=== PATIENT | male | born 1960 | race Caucasian/White ===

== ENCOUNTER → 2016-06-04 | Outpatient (CLI) | payer OTHER | LOC: LAB.O 08:43 | PROVIDERS: ATTEND Internal Medicine Hematology & Oncology | DX: M85.88 Other specified disorders of bone density and structure, other site (principal) ==

== ENCOUNTER → 2016-07-17 | Outpatient (CLI) | payer OTHER | END | disposition home or self-care (01) | LOC: LAB.O 08:40 | PROVIDERS: ATTEND Internal Medicine | DX: M45.9 Ankylosing spondylitis of unspecified sites in spine (principal) ==

== ENCOUNTER → 2016-07-19 | Day surgery (SDC) | payer OTHER ==
--- NOTE | 2016-07-17 13:47 | RAD ---
EXAM DESCRIPTION: Chest,2 Views CLINICAL HISTORY: Pre-op COMPARISON: None TECHNIQUE: PA/lateral FINDINGS: Increased AP diameter of the chest. The lungs are clear. There is no effusion. IMPRESSION: 1. There is suggestion of mild emphysema and increased diameter of the chest on the lateral radiograph. No additional findings noted. Electronically signed by: Franklin Acosta MD 07/17/2016 12:09 PM ACCOUNTING MACHINE OPERATOR
[~2016-07-19] MED LIST: CARBOXYMETHYLCELLULOSE 0.5% 0.4 ML UD ONE; DEXAMETHASONE INJ 10 MG/ML VIAL ONE; GLYCOPYRROLATE 0.2 MG/ML VIAL ONE; HYDROcodone 5MG/APAP 325MG 1 EA TAB ONE; LACTATED RINGERS 1,000 ML ONE; LIDOCAINE 1% 10 ML VIAL INJ ONE; METHYLENE BLUE INJ ONE; MIDAZOLAM INJ 5 MG/5 ML VIAL ONE; ONDANSETRON INJ 4 MG/2 ML VIAL ONE; PROPOFOL 200 MG/20 ML VIAL IV ONE; ROCURONIUM BROMIDE 10 MG/ML VIAL ONE; SODIUM CHL 0.9% 100ML MINI-BAG 100 ML IVPB ONE; ceFAZolin SODIUM 1 GM VIAL ONE; diphenhydrAMINE HCL 50 MG/ML VIAL ONE; fentaNYL CITRATE INJ 50 MCG/ML AMP ONE; raNITIdine HCL INJ 25 MG/ML VIAL ONE
[2016-07-19 11:24] VITALS: BP 124/81; TEMP 97; O2SAT 98
--- NOTE | 2016-07-19 11:32 | OP ---
DATE OF PROCEDURE: 07/19/16 PREOPERATIVE DIAGNOSIS: 1. Pilonidal cyst. POSTOPERATIVE DIAGNOSIS: 1. Pilonidal cyst. PROCEDURE: 1. Excision of pilonidal cyst. SURGEON: Daniel Gil MD. WEB APPLICATION DEVELOPER: None. ANESTHESIA: General endotracheal anesthesia in the prone position. INDICATION: The patient is a 55-year-old male who has had four years of some discomfort and draining from the area posterior to his anus, between his gluteus michale. After the risks, benefits and alteratives to the procedure were discussed and accepted, the patient was brought to the Surgical Suite today for excision of same. FINDINGS: The pilonidal cyst was extremely small with no apparent cannulation. PROCEDURE: The patient was brought to the Surgical Suite and placed in the supine position on the gurney. After an extremely difficult time with intubation, this was successfully done. It was then fixed in place, the face shield was placed, and the patient was then turned into the prone position and positioned without significant difficultly. He was then prepped and draped in the usual sterile manner. A surgical time-out was taken and then the cyst was instilled with methylene blue and hydrogen peroxide. An elliptical incision was fashioned around the lesion and the skin was incised with a sharp knife and then dissection was carried down through the subcutaneous tissue and the lesion was excised using electrocautery. There was no extravasation of methylene blue identified. Hemostasis was obtained with electrocautery. The wound was irrigated copiously with saline. It was then closed in layers with the subcutaneous layers closed with interrupted 3-0 Vicryl suture and the skin edges approximated with 3-0 Ethilon vertical mattress sutures. Sterile pressure dressing was applied. The patient was awakened and taken to the Recovery Room in stable condition. Estimated blood loss was less than 50 mL. All sponge, needle and instrument counts were correct. #[id number] [facility]
--- NOTE | 2016-07-22 00:37 | RAD ---
EXAM DESCRIPTION: Chest,2 Views CLINICAL HISTORY: Pre-op COMPARISON: None TECHNIQUE: PA/lateral FINDINGS: Increased AP diameter of the chest. The lungs are clear. There is no effusion. IMPRESSION: 1. There is suggestion of mild emphysema and increased diameter of the chest on the lateral radiograph. No additional findings noted. Electronically signed by: Franklin Acosta MD 07/17/2016 12:09 PM MILK PROCESSING WORKER
== END ==
LOC: AMB 05:54
PROVIDERS: ATTEND Surgery
DX: L05.91 Pilonidal cyst without abscess (principal); E11.9 Type 2 diabetes mellitus without complications; F20.9 Schizophrenia, unspecified; F17.210 Nicotine dependence, cigarettes, uncomplicated; Z88.8 Allergy status to other drugs, medicaments and biological substances; Z79.899 Other long term (current) drug therapy
CPT/HCPCS: 00300; 11770; 71020; 80307; 81001; 82948; 87070; 93005; J0690; J1100; J1200; J2250; J2405; J2780; J3010; J3490; J7050; J7120

== ENCOUNTER → 2016-10-04 | Outpatient (CLI) | payer OTHER ==
--- NOTE | 2016-10-06 11:33 | MRI ---
EXAM DESCRIPTION: Lumbar Spine w/wo Contrast CLINICAL HISTORY: INTRADURAL EXTRAMEDULLARY SPINAL TUMOR COMPARISON: None Available. TECHNIQUE: MRI of the lumbar spine is performed according to our usual protocol with axial and sagittal multi sequence imaging. Pre and postcontrast imaging was obtained with additional precontrast coronal imaging sequence obtained. FINDINGS: On the postcontrast coronal imaging there is very minimal scoliosis of the spine convex to the right. Vertebral and disc height is maintained without compression deformity or marrow destructive process with mild disc desiccation at L2-3 and at L4-5. The conus is positioned at the mid L1 level and in the posterior thecal sac at the mid L2 level is an oval intradural extra medullary oval mass measuring 1.8 x 1.0 cm and lying posterior to the nerve roots and the filum terminale. The mass is isointense to the cord on T1 and postcontrast enhanced imaging and mildly hyperintense to the cord on precontrast T2 imaging. Fatty signal characteristics are not apparent and additional intradural or intramedullary masses are not apparent. Mild disc desiccation and annular bulge at L2-3 and L3 4-5 is evident without lateralizing herniation identified with mild multilevel facet arthropathy with thecal sac in the lower range of normal at L4-5. Disc contours at the other disc levels are felt to be within the limits of normal with no lateralizing herniation. The extra medullary intradural mass homogeneously enhances and is oval and circumscribed and lies superiorly adjacent to the nerve roots and filum terminale. Differential diagnosis will include schwannoma, neurofibroma, possibly meningioma, with the additional possibility of an ependymoma because of proximity to the filum terminale and if the patient has a history of metastatic disease the possibility of an intradural metastasis. Additional lesions are not apparent. IMPRESSION: 1. Posteriorly positioned extra medullary intradural circumscribed oval 1.8 x 1.0 cm mass in the posterior thecal sac at the L1 level just below the conus with anterior displacement of the nerve roots and filum terminale. Mild but definite enhancement of the mass is apparent suggesting this does not represent a cystic abnormality. 2. Differential diagnosis would include schwannoma, neurofibroma, meningioma, as well as the possibility of an ependymoma or with a clinical history of previous malignancy the possibility of intradural metastatic disease. Additional lesions are not apparent. 3. Anterior displacement of the nerve roots is present without severe stenosis. 4. Mild annular bulge and disc desiccation at L2-3 and L4-5. Electronically signed by: Uriel Centeno MD 10/06/2016 11:32 AM CDT
== END | disposition home or self-care (01) ==
LOC: MRI 07:02
PROVIDERS: ATTEND Neurological Surgery
DX: M48.8X7 Other specified spondylopathies, lumbosacral region (principal)

== ENCOUNTER → 2016-10-11 | Outpatient (CLI) | payer OTHER | END | disposition home or self-care (01) | LOC: YCFC.O 07:54 | PROVIDERS: ATTEND Nurse Practitioner Family | DX: E11.65 Type 2 diabetes mellitus with hyperglycemia (principal); E78.2 Mixed hyperlipidemia ==

== ENCOUNTER 2016-10-24 21:27 | Emergency (ER) | payer OTHER ==
[2016-10-24] MEDS ORDERED: SODIUM CHLORIDE 0.9% 1000ML 1,000 ML IVS ONE (22:48)
--- NOTE | 2016-10-24 23:22 | CT ---
EXAM DESCRIPTION: Abdoment/Pelvis w/o Contrast CLINICAL HISTORY: 55 years Male left flank pain COMPARISON: None. TECHNIQUE: Contiguous axial images obtained through the abdomen and pelvis without IV contrast. Reformatted images obtained. This exam was performed according to our department optimization program which includes automated exposure control, adjustment of the mA and/or kv according to patient size and/or use of iterative reconstruction technique. FINDINGS: The lung bases are clear. Elongated Myron's lobe of the liver. Enlarged spleen. The pancreas is unremarkable. No adrenal masses. The kidneys appear unremarkable. No hydronephrosis or definite ureteral calculi. The gallbladder is contracted. No aneurysmal dilatation of the aorta. No bowel obstruction. Unremarkable appendix. No free pelvic fluid. Percutaneous pinning of the left hip. IMPRESSION: No evidence of hydronephrosis or obstructive uropathy Enlarged spleen Electronically signed by: Carly Ocampo 10/24/2016 11:21 PM CDT
[2016-10-24] MEDS ORDERED: HYDROmorphone HCL INJ 2 MG/ML VIAL IV ONE (23:23)
[2016-10-24 23:40] VITALS: BP 147/100
--- NOTE | 2016-10-24 23:46 | ED.PDOC ---
History of Present Illness - General Chief Complaint: Back Pain or Injury Stated Complaint: left flank pain Time Seen by Provider: 10/24/16 23:22 Source: patient Exam Limitations: no limitations - History of Present Illness Initial Comments: L FLANK PAIN X 11 MONTHS. GROSS HEMATURIA 1 WEEK AGO. URGENCY, VOIDS 7-10 X PER NIGHT. NO DYSURIA. DRINKS A LOT OF WATER. HAS NOT SEEN UROLOGY YET. 1 MO AGO ABX FOR SUSPECTED PROSTATITIS. CHRONIC ARTHRITIS FOR WHICH HE SEES RHEUMATOLOGY AND IS ON MTX AND HUMIRA. Quality/Severity: severe Allergies/Adverse Reactions: Allergies Amitriptyline Allergy (Verified 10/24/16 22:22) Naproxen [From Naprosyn] Adverse Reaction (Verified 07/17/16 11:27) Patient states, "I have muscle problems when I take Naprosyn" Home Medications: Ambulatory Orders Adalimumab [Humira Pen] 40 mg SC WKLY 07/17/16 Aspirin [Aspirin Adult Low Dose] 81 mg PO DAILY 07/17/16 Folic Acid 1 mg PO BEDTIME 07/17/16 Gabapentin [Neurontin] 600 mg PO TID 07/17/16 Lisinopril 20 mg PO DAILY 07/17/16 Metformin HCl 500 mg PO DAILY 07/17/16 Methotrexate Sodium [Methotrexate] 2.5 mg PO WKLY 07/17/16 Simvastatin 40 mg PO BEDTIME 07/17/16 Acetaminophen W/ Codeine [Tylenol W/ CODEINE #3] 1 - 2 ea PO Q6H PRN #15 Tamsulosin [Flomax] 0.4 mg PO QD #20 cap 10/25/16 Review of Systems - Review of Systems Constitutional: Denies: chills, fever EENTM: States: no symptoms reported Respiratory: States: no symptoms reported Cardiology: States: no symptoms reported Gastrointestinal/Abdominal: Denies: abdominal pain, constipation, diarrhea, nausea, vomiting Genitourinary: States: frequency, hematuria. Denies: discharge, dysuria Musculoskeletal: States: joint pain, other - CHRONIC ARTHRITIS FOR WHICH HE SEES RHEUMATOLOGY Skin: States: no symptoms reported Neurological: States: no symptoms reported Endocrine: States: no symptoms reported Hematologic/Lymphatic: States: no symptoms reported All other Systems: Reviewed and Negative Past Medical History (General) - Patient Medical History Hx Congestive Heart Failure: Yes Hx Hypertension: Yes Hx Diabetes: Yes - noncompliant Hx Gastroesophageal Reflux: Yes Hx MRSA: No Surgical History: other - Vaccination History Hx Tetanus, Diphtheria Vaccination: Yes Hx Influenza Vaccination: Yes Hx Pneumococcal Vaccination: No - Social History Hx Tobacco Use: Yes Hx Alcohol Use: No Family Medical History - Family History Father Family History: Unknown Physical Exam - Physical Exam General Appearance: Alert, Other - UNCOMFORTABLE Eyes, Ears, Nose, Throat Exam: PERRL/EOMI, normal ENT inspection Neck Exam: non-tender, full range of motion Cardiovascular/Respiratory: regular rate, rhythm, no M/R/G Gastrointestinal/Abdominal: normal bowel sounds, non tender Back Exam: no vertebral tenderness, CVA tenderness (L) Extremity Exam: no evidence of injury, normal range of motion Neurologic: alert, oriented x 3 Skin Exam: normal color, warm/dry Progress - Progress Progress: 10/24/16 23:55 CMP NEG. CBC = WBC 15, ELEV NEUTS. UA = SMALL BLOOD. CT = NEG FOR STONES. POS SPLENOMEGALY, THOUGH HIS PAIN IS IN POSTERIOR FLANK. ETX OF PT'S CHRONIC L FLANK PAIN IS NOT CLEAR. HE MAY HAVE PASSED A STONE ( BLOOD IN UA) WHICH DIDN'T SHOW UP ON CT AND HENCE HAS PAIN? D/T UNCLEAR ETX, I AM REFERRING TO UROLOGY FOR FURTHER W/U. WITH ELEV WBC AND HAVING HIGHER IFXN RISK ON HUMIRA, I AM RX'ING CIPRO. AND TYL #3 FOR THE PAIN. CLINICALLY HE HAS BPH SO I AM STARTING FLOMAX UNTIL HE CAN F/U W/ UROLOGY. 10/25/16 00:10 NOTE: I ATTEMPTED TO ORDER CIPRO, BACTRIM, MACROBID, FINALLY AUGMENTIN. ALL OF THEM WERE CONTRAINDICATED WITH HIS STATIN AND METHOTREXATE, THUS I WAS UNABLE TO ORDER PO ABX. THIS IS REASONABLE SINCE HE DOES NOT HAVE A UTI PER THE UA. Departure - Departure Clinical Impression: Chronic left flank pain, Microscopic hematuria, BPH associated with nocturia, Neutrophilic leukocytosis, Urgency of urination, Frequency of urination, Splenomegaly Disposition: Discharge to Home or Self Care Condition: Fair Departure Forms: ED Discharge - Pt. Copy, Patient Portal Self Enrollment Instructions: DI for Flank Pain Diet: resume usual diet Activity: increase activity as tolerated Referrals: Aurelio Paz IV, MD [Primary Care Provider] - 1-2 Weeks Prescriptions: Acetaminophen W/ Codeine [Tylenol W/ CODEINE #3] 1 - 2 ea PO Q6H PRN #15 PRN Reason: Pain Tamsulosin [Flomax] 0.4 mg PO QD #20 cap Home Medications: Ambulatory Orders Adalimumab [Humira Pen] 40 mg SC WKLY 07/17/16 Aspirin [Aspirin Adult Low Dose] 81 mg PO DAILY 07/17/16 Folic Acid 1 mg PO BEDTIME 07/17/16 Gabapentin [Neurontin] 600 mg PO TID 07/17/16 Lisinopril 20 mg PO DAILY 07/17/16 Metformin HCl 500 mg PO DAILY 07/17/16 Methotrexate Sodium [Methotrexate] 2.5 mg PO WKLY 07/17/16 Simvastatin 40 mg PO BEDTIME 07/17/16 Acetaminophen W/ Codeine [Tylenol W/ CODEINE #3] 1 - 2 ea PO Q6H PRN #15 Tamsulosin [Flomax] 0.4 mg PO QD #20 cap 10/25/16 Additional Instructions: Please call Dr. Wiggins ([phone]) or Dr. Zamora ([phone]), urologists, to set up an appointment to further evaluate your ongoing flank pain and urinary symptoms.
[2016-10-24] MEDS ORDERED: cefTRIAXone SODIUM 1 GM VIAL IM ONE (23:52)
[2016-10-25] MEDS ORDERED: cefTRIAXone SODIUM 1 GM in SODIUM CHL 0.9% 50ML MIN-BAG+ 50 ML IVPB ONE (00:05)
[2016-10-25] MEDS ORDERED: cefTRIAXone SODIUM 1 GM VIAL ONE (00:07)
[2016-10-25] MEDS ORDERED: SODIUM CHL 0.9% 50ML MIN-BAG+ 50 ML IVPB ONE (00:07)
[2016-10-25 00:39] VITALS: TEMP 98; O2SAT 95
== END 2016-10-25 00:39 | disposition home or self-care (01) ==
LOC: ER 21:27
DX: R10.9 Unspecified abdominal pain (principal); N40.1 Benign prostatic hyperplasia with lower urinary tract symptoms; R39.15 Urgency of urination; R35.0 Frequency of micturition; R35.1 Nocturia; R31.29 Other microscopic hematuria; D72.828 Other elevated white blood cell count; R16.1 Splenomegaly, not elsewhere classified; I11.0 Hypertensive heart disease with heart failure; I50.9 Heart failure, unspecified; E11.9 Type 2 diabetes mellitus without complications; M19.90 Unspecified osteoarthritis, unspecified site; K21.9 Gastro-esophageal reflux disease without esophagitis; Z87.891 Personal history of nicotine dependence; Z79.82 Long term (current) use of aspirin; Z79.899 Other long term (current) drug therapy; Z88.6 Allergy status to analgesic agent; Z88.8 Allergy status to other drugs, medicaments and biological substances
CPT/HCPCS: 36415; 74176; 80053; 81001; 85025; J0696; J1170; J7030; J7050

== ENCOUNTER → 2016-10-30 | Outpatient (CLI) | payer OTHER ==
--- NOTE | 2016-11-01 08:15 | US ---
EXAM DESCRIPTION: Soft Tissue,Head/Neck CLINICAL HISTORY: 55 years Male, SQ MASS BACK, R22.2 COMPARISON: None. FINDINGS: Real-time sonographic images of the soft tissue in the region of palpable abnormality labeled posterior neck shows a well-circumscribed heterogeneous but mostly hypoechoic nodule just below the skin surface measuring 1.5 x 1.5 x 1.1 cm. No significant internal vascularity Sonographic images are obtained in the area of palpable abnormality of the patient's back. There is a heterogeneous mostly isoechoic mass measuring 5.4 x 5.4 x 1.8 cm in the subcutaneous soft tissues. IMPRESSION: There is a 5.4 x 1.8 cm probable lipoma in the area of palpable abnormality labeled left posterior back. Continued follow-up to determine long-term stability may be useful. Second area of palpable abnormality below the skin surface labeled posterior neck measuring 1.5 cm likely represents complex cyst or a poorly vascular solid nodule. Electronically signed by: Trey Herrera MD 11/01/2016 8:15 AM CDT
== END | disposition home or self-care (01) ==
LOC: US 10:26
PROVIDERS: ATTEND Surgery
DX: R22.2 Localized swelling, mass and lump, trunk (principal)

== ENCOUNTER 2016-11-28 05:46 | Day surgery (SDC) | payer OTHER ==
--- NOTE | 2016-11-27 10:50 | RAD ---
EXAM DESCRIPTION: Chest,2 Views CLINICAL HISTORY: 55 years Male, PRE OP COMPARISON: to June 2016 TECHNIQUE: PA/lateral FINDINGS: There is no cardiac or pulmonary abnormality. The lungs are clear. There is no effusion. Marked collapse of one of the lower thoracic vertebral bodies is observed. It has progressed slightly since previous exam. Diffuse degenerative changes are noted. IMPRESSION: Unremarkable two-view chest Electronically signed by: Laci Vora MD 11/27/2016 10:50 AM CDT
[2016-11-28] MEDS ORDERED: LACTATED RINGERS 1,000 ML ONE (07:05)
[2016-11-28] MEDS ORDERED: SODIUM CHL 0.9% 100ML MINI-BAG 100 ML IVPB ONE (07:05)
[2016-11-28] MEDS ORDERED: ceFAZolin SODIUM 1 GM VIAL ONE (07:06)
[2016-11-28] MEDS ORDERED: LIDOCAINE 1% 50 ML VIAL INJ ONE (07:24)
[2016-11-28] MEDS ORDERED: SODIUM BICARBONATE SYRINGE 50 MEQ/50 ML SYG IV ONE (08:55)
[2016-11-28 10:05] VITALS: BP 129/81; TEMP 97.3; O2SAT 98
--- NOTE | 2016-11-28 10:36 | OP ---
DATE OF PROCEDURE: 11/28/16 PREOPERATIVE DIAGNOSIS: 1. Tender subcutaneous mass, left upper back. POSTOPERATIVE DIAGNOSIS: 1. Tender subcutaneous mass, left upper back. PROCEDURE: 1. Excision of subcutaneous mass, left upper back. SURGEON: Daniel Gil MD BACKSIDE GRINDER: None ANESTHESIA: Local infiltration of 1% lidocaine with bicarb. INDICATION: The patient is a 55-year-old male who had a tender mass on his upper back on the left. He also has one just to the right of the midline further up that is an inclusion cyst which is asymptomatic and not pursued at this time. He was brought to the Surgical Suite today for excision of same after the risks, benefits and alternatives to the procedure were discussed and accepted and ultrasound revealed it to be a subcutaneous mass, likely to be a lipoma. FINDINGS: The specimen was consistent with a lipoma. It was 5 cm x 4 cm x just over 1 cm deep. PROCEDURE: After the patient received his IV Ancef, he was brought to the Operating Room and placed in prone position. The left upper back was first clipped with the razor, then prepped and draped. An oblique incision was fashioned over the mass, first with local infiltration of anesthesia, then with a sharp knife. Dissection was carried down through the skin and subcutaneous tissue using electrocautery. Hemostasis was obtained with electrocautery. The dissection was carried deeper, passed Dorie's fascia until the lesion was identified. The incision was lengthened for the length of the skin incision. Using blunt dissection and electrocautery, the mass was then dissected free and sent for pathological evaluation. The wound was irrigated with saline. Hemostasis was obtained with electrocautery. When this was done, the wound was closed in three layers, the firs two with 3-0 Vicryl interrupted simple sutures and then the skin and subcutaneous tissue was reapproximated with 3-0 Nylon vertical mattress sutures. Sterile pressure dressing was applied. The patient tolerated the procedure well. Estimated blood loss was approximately 50 mL. All sponge, needle and instrument counts were correct. #[id number] [facility]
== END 2016-11-28 10:00 | disposition home or self-care (01) ==
LOC: AMB 05:46
PROVIDERS: ATTEND Surgery
DX: D17.1 Benign lipomatous neoplasm of skin and subcutaneous tissue of trunk (principal); E11.9 Type 2 diabetes mellitus without complications; I10 Essential (primary) hypertension; F20.9 Schizophrenia, unspecified; H91.90 Unspecified hearing loss, unspecified ear; R51 Headache; F17.200 Nicotine dependence, unspecified, uncomplicated; Z88.8 Allergy status to other drugs, medicaments and biological substances; Z79.84 Long term (current) use of oral hypoglycemic drugs; Z79.899 Other long term (current) drug therapy
CPT/HCPCS: 21933; 36415; 36416; 71020; 80048; 81001; 82948; 85025; 93005; J0690; J7050; J7120